=== PATIENT | male | born 1955 | race Caucasian/White ===

== ENCOUNTER → 2016-10-02 | Outpatient (CLI) | payer BLACK LUNG, MEDICARE ==
[~2016-10-02] MED LIST: CETIRIZINE HCL5 MG PO; DALIRESP500 MCG PO; FENOFIBRATE200 MG PO; FLOVENT DISKUS50 MCG INH; LEVAQUIN500 MG PO; LIPITOR TAB 1010 MG PO; LISINOPRIL5 MG PO; MEDROL DOSEPAK 24 MG PO; MELOXICAM7.5 MG PO; NEURONTIN 300300 MG PO; OMEPRAZOLE40 MG PO; PROAIR HFA8.5 GM INH; SINGULAIR10 MG PO; SPIRIVA HANDIH18 MCG INH; SYMBICORT 160-1 INHA INH
[2016-10-02 08:05] LABS: HEMOGLOBIN 14.5 gm/dl (14.0-17.5); RED BLOOD COUNT 4.98 M/UL (4.20-5.50); WHITE BLOOD COUNT 13.3 K/UL (4.5-11.0)
[2016-10-02 08:06] LABS: BUN/CREATININE RATIO 23 (0-10)
== END ==
LOC: LAB 06:49
PROVIDERS: Family Medicine
DX: E11.9 Type 2 diabetes mellitus without complications (principal); E78.5 Hyperlipidemia, unspecified
CPT/HCPCS: 36415; 80053; 80061; 83036; 85025

== ENCOUNTER → 2016-10-04 | Outpatient (CLI) | payer BLACK LUNG, MEDICARE | LOC: US 07-24 12:30 | DX: N28.1 Cyst of kidney, acquired (principal); R93.49 Abnormal radiologic findings on diagnostic imaging of other urinary organs ==

== ENCOUNTER 2020-11-11 14:47 | Inpatient (IN) | payer MEDICARE, BLACK LUNG ==
[~2020-11-11] VITALS: Ht 170.2 cm; Wt 75.3 kg
[2020-11-11 16:09] LABS: HEMOGLOBIN 14.6 gm/dl (14.0-17.5); RED BLOOD COUNT 4.85 M/UL (4.20-5.50); WHITE BLOOD COUNT 17.1 K/UL (4.5-11.0)
[2020-11-11 16:32] LABS: BUN/CREATININE RATIO 22 (0-10)
[2020-11-12 04:21] LABS: HEMOGLOBIN 13.7 gm/dl (14.0-17.5); RED BLOOD COUNT 4.74 M/UL (4.20-5.50); WHITE BLOOD COUNT 21.1 K/UL (4.5-11.0)
[2020-11-12 04:40] LABS: BUN/CREATININE RATIO 18 (0-10)
[2020-11-12] MEDS ORDERED: FLONASE 0.05% N16 GM (11:02)
[2020-11-12 19:12] LABS: HEMOGLOBIN 13.8 gm/dl (14.0-17.5); RED BLOOD COUNT 4.87 M/UL (4.20-5.50); WHITE BLOOD COUNT 18.4 K/UL (4.5-11.0)
[2020-11-13 04:31] LABS: BUN/CREATININE RATIO 18 (0-10)
[2020-11-13 08:30] LABS: RED BLOOD COUNT 4.66 M/UL (4.20-5.50); WHITE BLOOD COUNT 17.9 K/UL (4.5-11.0)
[2020-11-13] MEDS ORDERED: ATORVASTATIN CA20 MG PO (14:59)
[2020-11-13] MEDS ORDERED: ASPIRIN EC81 MG PO (14:59)
== END 2020-11-13 20:00 | DRG 65 ==
LOC: ER1 14:47 → CDU 17:39 → M/S 17:39
PROVIDERS: Emergency Medicine; Internal Medicine; Physician Assistant Medical; ADMIT Internal Medicine
PROC: B24BZZ4 Ultrasonography of Heart with Aorta, Transesophageal (ICD-10-PCS; principal; 2020-11-12)
DX: I63.9 Cerebral infarction, unspecified (principal); D69.3 Immune thrombocytopenic purpura; G81.94 Hemiplegia, unspecified affecting left nondominant side; I63.311 Cerebral infarction due to thrombosis of right middle cerebral artery; R47.81 Slurred speech; Z20.822 Contact with and (suspected) exposure to COVID-19; R26.9 Unspecified abnormalities of gait and mobility; J60 Coalworker's pneumoconiosis; R47.1 Dysarthria and anarthria; Z90.49 Acquired absence of other specified parts of digestive tract; Z79.82 Long term (current) use of aspirin; Z82.49 Family history of ischemic heart disease and other diseases of the circulatory system; Z80.0 Family history of malignant neoplasm of digestive organs
CPT/HCPCS: ECHO; 36415; 70450; 70551; 71045; 80048; 80053; 82550; 82553; 83036; 83605; 83735; 83874; 84484; 85025; 85027; 92610; 93005; 93306; 93880; 97163; 97166; 97530-GP-CQ; 99285; G0378; J2405; U0002

== ENCOUNTER → 2021-06-14 | Outpatient (CLI) | payer MEDICARE ==
[~2021-06-14] MED LIST changes: +ASPIRIN EC81 MG PO; +ATORVASTATIN CA20 MG PO; +FLONASE 0.05% N16 GM; +PREDNISONE 10 M10 MG PO
== END ==
LOC: KOH-I 10:25
DX: I69.354 Hemiplegia and hemiparesis following cerebral infarction affecting left non-dominant side (principal); I69.398 Other sequelae of cerebral infarction; H53.47 Heteronymous bilateral field defects
CPT/HCPCS: 70450